=== PATIENT | female | born 1955 | race Caucasian/White ===

== ENCOUNTER 2022-06-27 13:21 | Outpatient (CLI) | payer MEDICARE | END 2022-06-27 13:22 | disposition home or self-care (01) | LOC: CSHRAD 13:21 | PROVIDERS: ATTEND Student in an Organized Health Care Education/Training Program | DX: M54.42 Lumbago with sciatica, left side (principal); M54.41 Lumbago with sciatica, right side; G89.29 Other chronic pain; M47.816 Spondylosis without myelopathy or radiculopathy, lumbar region | CPT/HCPCS: 72100 ==

== ENCOUNTER 2023-04-21 04:43 | Inpatient (IN) | payer MEDICARE ==
[2023-04-21 06:15] VITALS: BMI 30.7
[2023-04-21] MEDS ORDERED: Acetaminophen 325 MG TAB PO PRN (06:15)
[2023-04-21] MEDS ORDERED: Calcium Carbonate 500 MG ChewTAB PO PRN (06:15)
[2023-04-21] MEDS ORDERED: Guaifenesin DM 100-10/5 ML UDCUP PO PRN (06:15)
[2023-04-21] MEDS ORDERED: Ondansetron PF 4 MG/2 ML Vial IVP PRN (06:15)
[2023-04-21] MEDS ORDERED: Ipratropium/Albuterol 3 ML NEB NEB PRN (06:22)
[2023-04-21] MEDS ORDERED: Lactated Ringer's 1,000 ML IV SCH (06:30)
[2023-04-21] MEDS ORDERED: Magnesium Citrate 300 ML BOT PO SCH (06:30)
[2023-04-21 08:04] LABS: Anion Gap 20 mmol/L (10-20); BUN (Urea Nitrogen) 29 mg/dL (9.8-20.1); Calc. Creatinine Clearance 15 mL/min (70-130); Carbon Dioxide 21 mmol/L (23-31); Chloride 101 mmol/L (98-107); Estimated GFR 9; Glucose 98 mg/dL (80-115); Magnesium 1.4 mg/dL (1.6-2.6); Phosphorus 5.7 mg/dL (2.3-4.7); Potassium 3.5 mmol/L (3.5-5.1); Sodium 138 mmol/L (136-145)
[2023-04-21 08:20] LABS: Calcium 6.3 mg/dL (7.8-10.44)
[2023-04-21] MEDS ORDERED: CALCIUM GLUC 1 GM/NS 50 ML 1 GM in Premix 1 BAG IVPB SCH ×2 (08:45→15:00)
[2023-04-21 08:51] LABS: Bilirubin Neg (Negative); Blood, Urine 25 (Negative); Glucose, Urine (Dipstick) Normal (Negative); Ketone, Urine Negative (Negative); Leukocyte Negative (Negative); Nitrite Negative (Negative); Protein, Urine (Dipstick) 30 mg/dl (Neg-Trace); Urobilinogen Normal mg/dL (Less than 2)
[2023-04-21 08:52] LABS: Clarity Hazy (Clear)
[2023-04-21] MEDS ORDERED: Magnesium 2 GM/50 ML(in water) 2 GM in Premix 1 BAG IVPB SCH ×2 (09:00→13:00)
[2023-04-21] MEDS ORDERED: Calcium Gluc 4.6 MEQ/10 ML (100 MG/ML) SLOW IVP SCH (09:00)
[2023-04-21 09:07] LABS: Bacteria/HPF 1+ HPF (None Seen); RBC/HPF 0-3 HPF (0-3)
[2023-04-21] MEDS: Rifaximin 200 MG TAB PO SCH ×2 (09:38→22:03)
[2023-04-21] MEDS ORDERED: Loperamide HCl 2 MG CAP PO SCH (11:00)
[2023-04-21] MEDS: Nicotine 14 MG PATCH TD SCH (11:26)
[2023-04-21] MEDS: Calcium Carbonate 500 MG TAB PO SCH ×2 (11:34→17:43)
[2023-04-21] MEDS: Magnesium Oxide 400 MG TAB PO SCH ×2 (11:35→22:05)
[2023-04-21] MEDS: Thiamine HCl 200 MG/2 ML VIAL SLOW IVP SCH (11:35)
[2023-04-21] MEDS: Pantoprazole 40 MG VIAL IVP SCH (11:35)
[2023-04-21] MEDS: Folic Acid 1 MG TAB PO SCH (11:36)
[2023-04-21] MEDS: Sodium Bicarbonate Tab 325 MG TAB PO SCH ×3 (11:36→22:03)
[2023-04-21] MEDS: Multivitamin W/ Minerals 1 TAB PO SCH (11:36)
[2023-04-21] MEDS: Diphenoxylate HCl/Atropine Tablet PO SCH ×3 (11:37→22:05)
[2023-04-21] MEDS: Heparin 5,000 UNITS/ML VIAL SC SCH ×3 (11:48→20:25)
[2023-04-21 11:59] LABS: Hematocrit 28.4 % (34.9-44.5); Hemoglobin 9.4 g/dL (12.0-15.5); Mean Corpuscular HGB CONC 33.1 g/dL (32.0-36.0); Mean Corpuscular Hemoglobin 28.7 pg (27.0-33.0); Mean Corpuscular Volume 86.6 fl (81.6-98.3); Mean Platelet Volume 10.7 fl (7.4-10.4); Platelet Count 236 10x3/uL (150-450); RBC Distribution Width 17.7 % (11.5-14.5); Red Blood Cell (RBC) Count 3.28 10x6/uL (3.90-5.03); White Blood Cell (WBC) Count 5.9 10x3/uL (3.5-10.5)
[2023-04-21 12:40] LABS: Anion Gap 20 mmol/L (10-20); BUN (Urea Nitrogen) 29 mg/dL (9.8-20.1); Calc. Creatinine Clearance 16 mL/min (70-130); Carbon Dioxide 19 mmol/L (23-31); Chloride 103 mmol/L (98-107); Estimated GFR 10; Glucose 92 mg/dL (80-115); Magnesium 1.4 mg/dL (1.6-2.6); Potassium 3.7 mmol/L (3.5-5.1); Sodium 138 mmol/L (136-145)
[2023-04-21 12:58] LABS: Calcium 6.4 mg/dL (7.8-10.44)
[2023-04-21 13:01] LABS: Phosphorus 6.4 mg/dL (2.3-4.7)
[2023-04-21 17:03] LABS: Anion Gap 19 mmol/L (10-20); BUN (Urea Nitrogen) 28 mg/dL (9.8-20.1); Calc. Creatinine Clearance 16 mL/min (70-130); Carbon Dioxide 19 mmol/L (23-31); Chloride 104 mmol/L (98-107); Estimated GFR 10; Glucose 110 mg/dL (80-115); Potassium 3.7 mmol/L (3.5-5.1); Sodium 138 mmol/L (136-145)
[2023-04-21 17:08] LABS: Calcium 6.9 mg/dL (7.8-10.44)
[2023-04-21] MEDS ORDERED: Pregabalin 25 MG CAP PO SCH (21:00)
[2023-04-21] MEDS ORDERED: Amoxicillin/Potassium Clav 500 MG TAB PO SCH (21:00)
[2023-04-21] MEDS: Loperamide HCl 2 MG CAP PO SCH (22:12)
[2023-04-22] MEDS ORDERED: Lactated Ringer's 1,000 ML IV SCH (02:00)
[2023-04-22] MEDS: Loperamide HCl 2 MG CAP PO SCH ×2 (03:22→09:26)
[2023-04-22] MEDS: Diphenoxylate HCl/Atropine Tablet PO SCH ×2 (03:22→09:26)
[2023-04-22 04:59] LABS: Hematocrit 25.7 % (34.9-44.5); Hemoglobin 8.4 g/dL (12.0-15.5); Mean Corpuscular HGB CONC 32.7 g/dL (32.0-36.0); Mean Corpuscular Hemoglobin 28.3 pg (27.0-33.0); Mean Corpuscular Volume 86.5 fl (81.6-98.3); Mean Platelet Volume 10.3 fl (7.4-10.4); Platelet Count 238 10x3/uL (150-450); RBC Distribution Width 17.6 % (11.5-14.5); Red Blood Cell (RBC) Count 2.97 10x6/uL (3.90-5.03); White Blood Cell (WBC) Count 5.2 10x3/uL (3.5-10.5)
[2023-04-22 05:13] LABS: Anion Gap 16 mmol/L (10-20); BUN (Urea Nitrogen) 27 mg/dL (9.8-20.1); Calc. Creatinine Clearance 20 mL/min (70-130); Calcium 7.2 mg/dL (7.8-10.44); Carbon Dioxide 23 mmol/L (23-31); Chloride 104 mmol/L (98-107); Estimated GFR 14; Glucose 85 mg/dL (80-115); Magnesium 2.4 mg/dL (1.6-2.6); Phosphorus 6.2 mg/dL (2.3-4.7); Potassium 3.9 mmol/L (3.5-5.1); Sodium 139 mmol/L (136-145)
[2023-04-22] MEDS: Nicotine 14 MG PATCH TD SCH ×2 (09:25→12:25)
[2023-04-22] MEDS: Pantoprazole 40 MG VIAL IVP SCH (09:25)
[2023-04-22] MEDS: Sodium Bicarbonate Tab 325 MG TAB PO SCH (09:25)
[2023-04-22] MEDS: Multivitamin W/ Minerals 1 TAB PO SCH (09:26)
[2023-04-22] MEDS: Folic Acid 1 MG TAB PO SCH (09:27)
[2023-04-22] MEDS: Magnesium Oxide 400 MG TAB PO SCH (09:27)
[2023-04-22] MEDS: Heparin 5,000 UNITS/ML VIAL SC SCH (12:22)
[2023-04-22] MEDS: Thiamine HCl 200 MG/2 ML VIAL SLOW IVP SCH (12:24)
[2023-04-22] MEDS ORDERED: CALCIUM GLUC 1 GM/NS 50 ML 1 GM in Premix 1 BAG IVPB SCH (12:30)
[2023-04-22 13:57] VITALS: BP 115/77; TEMP 98
[2023-04-23 09:37] LABS: Adenovirus F 40-41 Not Detected (Not Detected); Astrovirus Not Detected (Not Detected); C. difficile toxin A+B Not Detected (Not Detected); Campylobacter by PCR Not Detected (Not Detected); Cryptosporidium Not Detected (Not Detected); Cyclospora cayetanensis Not Detected (Not Detected); Entamoeba histolytica Not Detected (Not Detected); Enteroaggregative E. coli Not Detected (Not Detected); Enteropathogenic E. coli Not Detected (Not Detected); Enterotoxigenic E. coli Not Detected (Not Detected); Giardia lamblia Not Detected (Not Detected); Norovirus GI-GII Not Detected (Not Detected); Plesiomonas shigelloides Not Detected (Not Detected); Rotavirus A Not Detected (Not Detected); Salmonella Not Detected (Not Detected); Sapovirus Not Detected (Not Detected); Shiga-toxin-producing E coli Not Detected (Not Detected); Shigella/Enteroinvasive E coli Not Detected (Not Detected); Vibrio Not Detected (Not Detected); Vibrio cholerae Not Detected (Not Detected); Yersinia enterocolitica Not Detected (Not Detected)
== END 2023-04-22 14:30 | disposition home or self-care (01) | DRG 683 ==
LOC: CSHTELE 05:55
PROVIDERS: ADMIT Student in an Organized Health Care Education/Training Program; ATTEND Internal Medicine
DX: N17.9 Acute kidney failure, unspecified (principal); E87.20 Acidosis, unspecified; R19.7 Diarrhea, unspecified; D64.9 Anemia, unspecified; G62.9 Polyneuropathy, unspecified; Z98.890 Other specified postprocedural states; Z79.899 Other long term (current) drug therapy; F17.210 Nicotine dependence, cigarettes, uncomplicated; E83.42 Hypomagnesemia; E86.0 Dehydration; E83.39 Other disorders of phosphorus metabolism; E83.51 Hypocalcemia
CPT/HCPCS: 36415; 74018; 76770; 80048; 81001; 82040; 82306; 83735; 84100; 85027; 87324; 87449; 87507; C9113; J0612; J3411; J3475; J7120

== ENCOUNTER 2023-08-13 08:07 | Outpatient (CLI) | payer MEDICARE | END 2023-08-13 08:08 | disposition home or self-care (01) | LOC: CSHCT 08:07 | PROVIDERS: ATTEND Student in an Organized Health Care Education/Training Program | DX: R19.01 Right upper quadrant abdominal swelling, mass and lump (principal); K43.9 Ventral hernia without obstruction or gangrene; M79.89 Other specified soft tissue disorders | CPT/HCPCS: 74170 ==